=== PATIENT | female | born 1960 | race Caucasian/White ===

== ENCOUNTER 2021-05-10 04:15 | Outpatient (CLI) | payer MEDICAID, SELFPAY ==
[2021-05-10 11:11] LABS: ALT 66 U/L (14-59); AST 29 U/L (15-37); Albumin 3.7 g/dL (3.4-5.0); Alkaline Phosphatase 150 U/L (46-116); Anion Gap 8.1 mmol/L (3-11); BUN 19 mg/dL (7-18); Bilirubin, Total 0.6 mg/dL (0.2-1.0); CO2 28.9 mmol/L (21.0-32.0); CREATININE 0.8 mg/dL (0.55-1.02); Calcium 9.5 mg/dL (8.5-10.1); Chloride 98 mmol/L (98-107); Cholesterol 289 mg/dL (<200); Glucose 428 mg/dL (74-106); HDL Cholesterol 37 mg/dL (40-60); Potassium 4.7 mmol/L (3.5-5.1); Sodium 135 mmol/L (136-145); TSH 2.19 uIU/mL (0.36-3.74); Triglyceride 628 mg/dL (<150)
[2021-05-10 11:28] LABS: LDL CHOLESTEROL 139 mg/dL (<100)
== END 2021-05-10 04:16 | disposition home or self-care (01) ==
LOC: LBO 04:15
PROVIDERS: PCP Internal Medicine; Visit Provider Internal Medicine
DX: E78.00 Pure hypercholesterolemia, unspecified (principal); E66.01 Morbid (severe) obesity due to excess calories; R03.0 Elevated blood-pressure reading, without diagnosis of hypertension
CPT/HCPCS: 36415; 80053; 80061; 83721; 84443

== ENCOUNTER 2021-05-16 02:17 | Outpatient (CLI) | payer MEDICAID, SELFPAY ==
--- NOTE | 2021-05-16 15:00 | NS.NUTBLAN_ITS ---
Ellie was referred to Medical Nutrition Therapy for diabetes self management education. Newly diagnosed with DM2 with A1c: 14% , tri, Chol 289, LDL 139, HDL: 37 (05/10/21). PMH: morbid obesity, HTN, elevated triglycerides, metabolic syndrome. Ellie also has bilateral cataracts and is legally blind, cannot read any print. Has not picked up her glucometer yet and states she won't be able to use or read it. Son lives with her that can help with written material. Ellie states she has stopped drinking soda and eating junk foods. Diet recall indicates mostly well balanced meals including sandwiches, home cooked meals. High intake of milk as beverages during day. Reviewed verbally how to follow a lower carb diet to help reduce blood sugars. Also discussed benefits of using a continuous glucose monitor with alarms that can help alert her when she experiences hypo/hyper glycemia. Recommend script for Libre2 Continuous glucose monitor and sensor and continue on metformin 1000 mg BID. Recommend starting Januvia to target post prandial blood sugars. If unable to get fasting blood sugars <140 mg/dl, recommend starting basal insulin- Tresiba. Ellie has low health literacy and will benefit from referral to community connections to assist her in navigating the medical system with multiple co morbidities. Has been working with [facility] [employer]. Provided Ellie with my contact info as can place continuous glucose monitor on most weekdays. Will follow up by phone in 1 week.
== END 2021-05-16 02:18 | disposition home or self-care (01) ==
LOC: DS 02:18
PROVIDERS: PCP Internal Medicine; Visit Provider Dietitian, Registered
DX: E11.9 Type 2 diabetes mellitus without complications (principal); E66.01 Morbid (severe) obesity due to excess calories; I10 Essential (primary) hypertension; Z71.3 Dietary counseling and surveillance
CPT/HCPCS: 97802

== ENCOUNTER 2021-05-31 09:45 | Outpatient (CLI) | payer MEDICAID, SELFPAY ==
--- NOTE | 2021-05-31 09:45 | RT.EKG_ITS ---
APPROVED REPORT Exam: Resting ECG Reason for Exam: pre op Patient Location: O HR:93 bpm ECG Measurements Heart Rate 93 AXIS NE 155 P 51 QRSd 76 QRS 42 QT 347 T 24 QTc 432 Conclusion Sinus rhythm...normal P axis, V-rate 60- 99 Poor R wave progression
== END 2021-05-31 09:46 | disposition home or self-care (01) ==
LOC: DI.KIM 09:51
PROVIDERS: PCP Internal Medicine; Visit Provider Internal Medicine
DX: Z01.818 Encounter for other preprocedural examination (principal)
CPT/HCPCS: 93010

== ENCOUNTER 2021-06-09 02:50 | Outpatient (CLI) | payer MEDICAID, SELFPAY ==
[2021-06-09 11:03] LABS: Source Nasal/Nares
[2021-06-09 19:01] LABS: COVID-19 PCR Negative (Negative)
== END 2021-06-09 02:51 | disposition home or self-care (01) ==
LOC: LBO 02:50
PROVIDERS: PCP Internal Medicine; Visit Provider Ophthalmology
DX: Z20.822 Contact with and (suspected) exposure to COVID-19 (principal); Z01.818 Encounter for other preprocedural examination
CPT/HCPCS: 87635

== ENCOUNTER 2021-06-12 06:37 | Day surgery (SDC) | payer MEDICAID, SELFPAY ==
[2021-06-12 06:48] VITALS: BP 119/84; PULSE 96; RESP 16; TEMP 36.4; O2SAT 98
[2021-06-12] MEDS: Tropicam./Phenyleph. (1/2.5%) 5 ML BTL OS ×3 (06:58→07:11)
--- NOTE | 2021-06-12 07:16 | ANES.PREOP_ITS ---
General Info Date of Service Date Performed: 06/12/21 Height: 5 ft 6.5 in Weight: 118.4 kg Body Mass Index (BMI): 41.5 Surgical Procedure: Operation Date: 06/12/21 07:40 Proposed Procedures Side Surgeon p Cataract Extraction with IOL Implant Marc Rosado MD Meds Allergies and Home Medications Allergies Allergy/AdvReac Type Severity Reaction Status Date / Time No Known Allergies Allergy Verified 06/12/21 07:01 Home Medication Medication Instructions Recorded acetaminophen [Mapap Extra 1,000 mg PO PRN PRN 05/28/17 Strength] ibuprofen 400 mg PO PRN PRN 05/28/17 albuterol sulfate 90 mcg/actuation 2 puff INHALATION Q6H PRN #1 unit 05/03/21 aerosol inhaler metformin 500 mg tablet 500 mg PO BID #60 tab 05/10/21 alcohol swabs 1 pad TOPICAL DAILY #100 ea 05/17/21 amlodipine 2.5 mg tablet 2.5 mg PO DAILY #30 tab 05/17/21 blood sugar diagnostic #100 ea 05/17/21 blood-glucose meter #1 ea 05/17/21 lancets 33 gauge #100 ea 05/17/21 pen needle, diabetic 31 gauge x #100 05/17/21 1/4 insulin glargine 100 unit/mL (3 20 unit SUBCUT QPM #6 syrg 05/31/21 mL) subcutaneous pen tiotropium bromide 1.25 2 puff INHALATION QAM #1 units 05/31/21 mcg/actuation mist for inhalation olmesartan 20 1 tab PO DAILY #30 tab 06/02/21 mg-hydrochlorothiazide 12.5 mg tablet Current Visit Medications: Current Medications Generic Name Dose Route Start Last Admin Trade Name Freq PRN Reason Stop Dose Admin Acetaminophen 1,000 mg 06/12/21 06:00 Acetaminophen 500 Mg Tab PO Q4H PRN PRN Miscellaneous Medication 0 ml 06/12/21 06:00 Prednisolone 1%, Moxifloxacin 0.5%, Nepafenac 0.1% 5ml Btl OS DIRECTED [facility] Miscellaneous Medication 0 ml 06/12/21 06:00 06/12/21 07:11 Tropicam./Phenyleph. (1/2.5%) 5 Ml Btl OS 1 drp DIRECTED HILARIA Administration Tetracaine HCl 0 ml 06/12/21 06:00 Tetracaine 0.5% 4 Ml Btl OS DIRECTED [facility] Active Problems Active Problems: Problem Status Onset Code Obesity, morbid, BMI 40.0-49.9 E66.01 Cataracts, bilateral H26.9 Nicotine dependence ~1974 F17.200 Hypertriglyceridemia E78.1 Type 2 diabetes mellitus without complication E11.9 Essential hypertension I10 Metabolic syndrome E88.81 Nuclear sclerotic cataract of left eye H25.12 Posterior subcapsular age-related cataract of left eye H25.042 Medical History Medical History Elevated blood pressure reading without diagnosis of hypertension Surgical History Surgical History (Updated 06/12/21 @ 07:01 by Jacinda Messer) Hx of tooth extraction 1987; all teeth removed Hx of tubal ligation Hx of wisdom tooth extraction Tobacco Smoking/Tobacco Use Status: Current every day Tobacco Type: cigarettes Quit Status: not considering quitting Alcohol Alcohol Intake: former Substance Use Substance use: Occasionally Substance use type: marijuana Details: Patient reports no use today; 06/12/21 Vital Signs and Lab Results Vital Signs Most Recent Vital Signs in EMR: Most Recent Vital Signs Temp Pulse Resp BP Pulse Ox 36.4 C L 96 H 16 119/84 98 06/12/21 06:48 06/12/21 06:48 06/12/21 06:48 06/12/21 06:48 06/12/21 06:48 Lab Results Blood Type / Crossmatch: No Data to Display Complete Blood Count: No Data to Display Complete Metabolic Panel: No Data to Display Liver Function Panel: No Data to Display Coagulation Panel: No Data to Display Cardiac Panel: No Data to Display Arterial Blood Gas: No Data to Display Venous Blood Gas: No Data to Display Pancreas Panel: No Data to Display Thyroid Panel: No Data to Display Infectious Disease: Coronavirus (COVID-19)(PCR) Negative (Negative) 06/09/21 08:44 06/09/21 Coronavirus 2019 Source Nasal/Nares 06/09/21 08:44 06/09/21 Blood Cultures: No Data to Display Toxicology Panel: No Data to Display Anesthesia Assessment and Plan Anesthesia History Personal History: No History of Anesthesia Complications Family History: No Family History of Anesthesia Complications Exercise Tolerance Exercise Tolerance: Metabolic Equivalents>4 Pertinent Negatives Pertinent Negatives: No Symptoms of GERD, No Major Cardiovascular Symptoms or Complaints, No Major Pulmonary Symptoms or Complaints and No History of CVA/TIA Cardiac & Pulmonary Exam Cardiac Exam: Normal S1/S2 Heart Sounds Pulmonary Exam: Clear Bilateral Breath Sounds and Unable to Assess Airway Exam Known Difficult Airway: No Mallampati Class: 1 Mouth Opening: Normal (> 3cm) Thyromental Distance: Greater than 3 cm Neck Range of Motion: Full ROM Neck Circumference: Normal Teeth Condition: Normal Dentition, Removable Dentures/Plates Upper and Removable Dentures/Plates Lower ASA Classification ASA Score: ASA 3 Emergency Case?: No NPO Status NPO Status: NPO Clears >2 hours, Solids >8 hours Anesthesia Plan Resuscitation Status: Full Code Anesthesia Technique: MAC Anesthesia Airway Planned: Natural Airway Monitors Used: Standard Monitors
[2021-06-12 07:18] VITALS: BMI 41.5
[2021-06-12] MEDS: Trypan Blue 0.06% 0.5 ML SYR (07:44)
[2021-06-12] MEDS: Tetracaine 0.5% 4 ML BTL OS (07:46)
[2021-06-12] MEDS: Lidocaine 1% Pres-Free 5 ML VIAL (07:47)
[2021-06-12] MEDS: Balanced Salt Soln.-PLUS 500 ML BAG (07:49)
[2021-06-12] MEDS: Lidocaine 2% Jelly 6 ML SYR (07:50)
[2021-06-12] MEDS: Duovisc Viscoelastic System EACH 1 EACH (07:50)
[2021-06-12] MEDS: Povidone-Iodine Ophth 30 ML BTL (07:51)
--- NOTE | 2021-06-12 08:01 | W.ANESPOSTOP ---
Postoperative Evaluation Date, Time and Location Date Performed: 06/12/21 Time Performed: 08:01 Patient Location: Day Surgery Unit Vital Signs Most Recent Imported Vital Signs: Most Recent Vital Signs Temp Pulse Resp BP Pulse Ox 36.4 C L 96 H 16 119/84 98 06/12/21 06:48 06/12/21 06:48 06/12/21 06:48 06/12/21 06:48 06/12/21 06:48 Most Recent Manually Entered Vital Signs: Adult Blood Pressure: 113/87 Heart Rate: 87 Respirations: 12 Oxygen Saturation (%): 94 Temperature (C): 35.9 C Pain Score (0-10 Scale): 0 Pain Score Most Recent Pain Score: Most Recent Pain Score Pain Level 2 06/12/21 06:48 Assessment Mental Status: Awake (Alert & Oriented to Patient Baseline) Airway and Respiratory Function: Patent airway with normal (patient baseline) respiratory exam Cardiovascular Function: Hemodynamically Stable Hydration Status: Adequately Hydrated Nausea & Vomiting: No Nausea or Vomiting Pain: Pt. Denies Any Pain Peripheral Nerve Block: Patient did not receive a nerve block
[2021-06-12 08:02] VITALS: BP 113/87; PULSE 87; RESP 12; TEMPC 35.9; O2SAT 94
--- NOTE | 2021-06-12 08:04 | W.PM.DSUDISC ---
Discharge Plan Disposition Patient Disposition: HOME Condition: Good Discharge Details Attending Provider: Marc Rosado Primary Care Provider: Trena Lynne Home Meds and New Rx's Prescriptions: No Action albuterol sulfate 90 mcg/actuation HFA aerosol inhaler 2 puff inhalation Q6H PRN (Reason: shortness of breath or wheezing) Qty: 1 RF: 2 metformin 500 mg tablet 500 mg PO BID Qty: 60 RF: 1 Spiriva Respimat 1.25 mcg/actuation mist 2 puff inhalation QAM Qty: 1 RF: 1 Lantus Solostar U-100 Insulin 100 unit/mL (3 mL) insulin pen 20 unit subcut QPM Qty: 6 RF: 3 amlodipine 2.5 mg tablet 2.5 mg PO DAILY Qty: 30 RF: 1 (DME) lancets [OneTouch Delica Lancets] 33 gauge misc See Rx Instructions .ROUTE .MEDSUPPLY Qty: 100 RF: 0 (DME) blood-glucose meter [OneTouch Ultra2 Meter] Misc See Rx Instructions .ROUTE .MEDSUPPLY Qty: 1 RF: 0 alcohol swabs [Alcohol Pads] Pads, Medicated 1 pad topical DAILY Qty: 100 RF: 6 (DME) OneTouch Ultra Test Strip See Rx Instructions .ROUTE .MEDSUPPLY Qty: 100 RF: 5 (DME) pen needle, diabetic [Comfort EZ Pen [place]] 31 gauge x 1/4 needle See Rx Instructions .ROUTE .MEDSUPPLY Qty: 100 RF: 6 olmesartan-hydrochlorothiazide 20-12.5 mg tablet 1 tab PO DAILY Qty: 30 RF: 0 ibuprofen 200 MG capsule 400 mg PO PRN PRNRF: 0 acetaminophen [Mapap Extra Strength] 500 MG tablet 1,000 mg PO PRN PRNRF: 0 Discharge Instructions Stand Alone Forms: Post-op Topical Cataract, Press Capriceey (DSU) Discharge Orders Discharge Orders: Discharge Order (Routine); Ordered 06/12/21 Ordered By: Marc Rosado DS: Diagnosis Discharge Diagnosis (1) Nuclear sclerotic cataract of left eye: Status: Resolved (2) Posterior subcapsular age-related cataract of left eye: Status: Resolved
--- NOTE | 2021-06-12 08:06 | W.PM.OP ---
Date of service: 06/12/21 Time of Service: 08:06 Operative Note Operative Note DATE OF PROCEDURE: 06/12/21 PRE-OP DIAGNOSIS: Dense nuclear/posterior subcapsular cataract, left eye Poor red reflex, left eye POST-OP DIAGNOSIS: same PROCEDURE: Cataract extraction using phacoemulsification with intraocular lens implant, left eye, using capsular staining with Vision Blue SURGEON: Marc Rosado ANESTHESIA TYPE: Local By Surgeon and MAC Refer to Anesthesia Record COMPLICATIONS: None Patient was transported to: same day Patient's condition: stable Implants: Karsten [employer] Karsten / [employer] Tecnis [id number] Indications: Progressive decreased vision due to cataract, left eye, with poor red reflex Procedure Description: CATARACT SURGERY OPERATIVE REPORT PREOPERATIVE DIAGNOSIS: 1. Dense nuclear/posterior subcapsular cataract, left eye 2. Poor red reflex secondary to #1 POSTOPERATIVE DIAGNOSIS: Same OPERATION: 1. Cataract extraction using phacoemulsification with posterior chamber intraocular lens implant, left eye. 2. Capsular staining with Vision Blue IOL: IOL Sueding Machine Operator/Model: Karsten & Karsten / KIA Tecnis [id number] IOL Power: + 23.5 diopters IOL Serial Number: [id number] Optic Diameter: 6.0 mm Haptic/Overall Diameter: 13.0 mm PHACO INFO: Javier [employer]Tec-[employer] Vision System with OZil and Active Fluidics Cumulative Dispersed Energy (CDE): 19.28 seconds SURGEON: Marc Rosado MD, CATHERINE ANESTHESIA: Monitored A [facility] (MAC), with local sub-tenon's anesthetic infiltration COMPLICATIONS: None SPECIMENS: None INDICATIONS FOR PROCEDURE: The patient is an 61-year-old lady with history of progressive decreased vision in both eyes secondary to cataract. She has a mature white cataract in the right eye with hand motions vision. She has a dense nuclear and posterior subcapsular cataract in the left eye. Of cataract surgery was offered to the patient and she wished to proceed. Cataract surgery is undertaken on the less affected eye first. PROCEDURE: The correct surgical eye was identified and marked as the left eye and the pupil was dilated in the preoperative area using mydriatics and cycloplegics. The dilated pupil size was 7.0 mm. Oral sedation was administered in the form of an Imprimis MKO Melt (midazolam 3mg/ketamine 25mg/ondansetron 2mg). The patient was brought to the operating room where cardiopulmonary monitoring was instituted and surgical time-out was performed, confirming the correct operative eye and IOL power. Topical anesthesia was administered and ophthalmic povidone-iodine 5% was instilled into the conjunctival fornices. Lidocaine gel was applied to the cornea and the adarsh-ocular area was prepped with Betadine 10% solution and draped in the usual sterile fashion for intraocular surgery, including an aperture drape. A Tegaderm transparent film dressing was cut in half and used to cover the lashes and lid margins. Care was taken to sequester the lashes and lid margins under the Tegaderm dressing. A lid speculum was placed between the lids of the operative eye and the Matthew-Jose operating microscope was maneuvered into position. Tor scissors were then used to make a conjunctival buttonhole approximately 6mm posterior to the limbus in the inferonasal quadrant. Blunt dissection was carried out to expose bare sclera, and a blunt-tipped sub-tenon?s anesthesia cannula was introduced and passed posteriorly along the globe where non-preserved plain lidocaine was injected into posterior sub-Tenon?s space. A sideport knife was used to make a paracentesis port superiorly/superiortemporally. Intraocular phenylephrine/lidocaine was injected int the anterior chamber.. Air was then injected into the anterior chamber, followed by Vision Blue, which was painted over the anterior capsule and then irrigated out using BSS. The anterior chamber was filled with viscoelastic. A 2.4mm keratome knife was used to create a half-thickness groove at the limbus and then to construct a three-plane near-clear corneal tunnel extending 2.0mm into clear cornea at the 3:00 position. A flap was raised on the anterior capsule and capsulorhexis forceps were used to complete a continuous curvilinear capsulorhexis of 5.0 mm. Balanced salt solution was then used to perform cortical cleaving hydrodissection and nuclear hydrodelineation until the lens could be freely rotated within the capsular bag. The lens nucleus was then disassembled and removed within the capsular bag and iris plane using phacoemulsification. Residual cortical material was removed using the 45-degree angled silicone I/A tip with 0.3mm port. The posterior capsule was carefully polished to remove as much residual lens epithelial cells as safely possible. The capsular bag was then inflated and the anterior chamber deepened with viscoelastic. The lens implant described above was inserted into the capsular bag using the KIA [place] Injector. A Kuglen hook was used to dial the IOL into position. Residual viscoelastic was then removed first from posterior to the IOL, then from the anterior chamber using the I/A handpiece. The lens implant was noted to center nicely within the capsular bag. The incisions were stromally hydrated, and the anterior chamber was reformed using BSS. Then 0.5cc of moxifloxacin 1.0mg/ml were injected into the capsular bag and anterior chamber. The incisions were checked with a Weck spear and found to be secure. Several drops of ophthalmic povidone-iodine 5% were then applied to the eye followed by two drops of Imprimis combination prednisolone/moxifloxacin/nepafenac solution. The drapes were removed and a clear plastic protective eye shield was placed over the eye. The patient was then returned to Same Day Surgery in stable condition.
[2021-06-12 08:30] VITALS: BP 101/79; PULSE 89; RESP 16; TEMP 36.2; O2SAT 93
== END 2021-06-12 08:47 | disposition home or self-care (01) ==
PROVIDERS: PCP Internal Medicine; Visit Provider Ophthalmology
PROC: (CPT 66984; principal; 2021-06-12 07:30)
DX: H25.042 Posterior subcapsular polar age-related cataract, left eye (principal); E11.9 Type 2 diabetes mellitus without complications
CPT/HCPCS: 66984; V2632

== ENCOUNTER 2021-06-23 01:49 | Outpatient (CLI) | payer MEDICAID, SELFPAY ==
[2021-06-23 10:19] LABS: Source Nasal/Nares
[2021-06-23 12:57] LABS: COVID-19 PCR Negative (Negative)
== END 2021-06-23 01:50 | disposition home or self-care (01) ==
LOC: LBO 01:49
PROVIDERS: PCP Internal Medicine; Visit Provider Ophthalmology
DX: Z20.822 Contact with and (suspected) exposure to COVID-19 (principal); Z01.818 Encounter for other preprocedural examination
CPT/HCPCS: 87635

== ENCOUNTER 2021-06-26 06:54 | Day surgery (SDC) | payer MEDICAID, SELFPAY ==
--- NOTE | 2021-05-22 10:10 | W.DIABETESNO ---
Date of service: 05/22/21 Time of Service: 10:10 Diabetes Note NOTE: Spoke to Ellie on phone today to follow up on visit last week. Ellie is using a large print glucometer and reports fasting today was 272mg/dl. She is taking 10 units lantus at night. She has been instructed to increase lantus by 2 units every 2 days until fasting sugars < 150 mg/dl. She did not want to discuss diet and said she didn't need any assistance with controlling her blood sugars. Sugars are slowing improving, last weeks blood sugars > 350 mg/dl in AM. Will follow up in 1 weeks. Time Spent in Nutritional Counseling and Treatment: 10
--- NOTE | 2021-05-29 09:50 | W.DIABETESNO ---
Date of service: 05/29/21 Time of Service: 09:50 Diabetes Note NOTE: Spoke to Ellie on phone. She reports fasting blood sugars < 150 mg/dl. Did not want any additional dietary information at this time. No follow up planed at this time. Time Spent in Nutritional Counseling and Treatment: 5
--- NOTE | 2021-06-26 07:05 | W.ANESPRE ---
General Info Date of Service Date Performed: 06/26/21 Height: 5 ft 6.5 in Weight: 118.4 kg Body Mass Index (BMI): 41.5 Surgical Procedure: Operation Date: 06/26/21 08:40 Proposed Procedures Side Surgeon p Cataract Extraction with IOL Implant Right Marc Rosado MD Meds Allergies and Home Medications Allergies Allergy/AdvReac Type Severity Reaction Status Date / Time No Known Allergies Allergy Verified 06/22/21 12:07 Home Medication Medication Instructions Recorded acetaminophen [Mapap Extra 1,000 mg PO PRN PRN 05/28/17 Strength] ibuprofen 400 mg PO PRN PRN 05/28/17 albuterol sulfate 90 mcg/actuation 2 puff INHALATION Q6H PRN #1 unit 05/03/21 aerosol inhaler metformin 500 mg tablet 500 mg PO BID #60 tab 05/10/21 alcohol swabs 1 pad TOPICAL DAILY #100 ea 05/17/21 amlodipine 2.5 mg tablet 2.5 mg PO DAILY #30 tab 05/17/21 blood sugar diagnostic #100 ea 05/17/21 blood-glucose meter #1 ea 05/17/21 lancets 33 gauge #100 ea 05/17/21 pen needle, diabetic 31 gauge x #100 ea 05/17/21 1/4 insulin glargine 100 unit/mL (3 20 unit SUBCUT QPM #6 syrg 05/31/21 mL) subcutaneous pen tiotropium bromide 1.25 2 puff INHALATION QAM #1 units 05/31/21 mcg/actuation mist for inhalation olmesartan 20 1 tab PO DAILY #30 tab 06/02/21 mg-hydrochlorothiazide 12.5 mg tablet Current Visit Medications: Current Medications Generic Name Dose Route Start Last Admin Trade Name Freq PRN Reason Stop Dose Admin Acetaminophen 1,000 mg 06/26/21 06:00 Acetaminophen 500 Mg Tab PO Q4H PRN PRN Miscellaneous Medication 0 ml 06/26/21 06:00 Prednisolone 1%, Moxifloxacin 0.5%, Nepafenac 0.1% 5ml Btl OD DIRECTED [facility] Miscellaneous Medication 0 ml 06/26/21 06:00 Tropicam./Phenyleph. (1/2.5%) 5 Ml Btl OD DIRECTED [facility] Tetracaine HCl 0 ml 06/26/21 06:00 Tetracaine 0.5% 4 Ml Btl OD DIRECTED [facility] Active Problems Active Problems: Problem Status Onset Code Cortical cataract of right eye H26.9 Nuclear sclerotic cataract of right eye H25.11 Obesity, morbid, BMI 40.0-49.9 E66.01 Cataracts, bilateral H26.9 Nicotine dependence ~1974 F17.200 Hypertriglyceridemia E78.1 Type 2 diabetes mellitus without complication E11.9 Essential hypertension I10 Metabolic syndrome E88.81 Nuclear sclerotic cataract of left eye H25.12 Posterior subcapsular age-related cataract of left eye H25.042 Medical History Medical History Elevated blood pressure reading without diagnosis of hypertension Surgical History Surgical History Hx of tooth extraction 1987; all teeth removed Hx of tubal ligation Hx of wisdom tooth extraction Tobacco Smoking/Tobacco Use Status: Current every day Tobacco Type: cigarettes Quit Status: not considering quitting Alcohol Alcohol Intake: former Substance Use Substance use: Occasionally Substance use type: marijuana Details: Patient reports no use today; 06/12/21 Vital Signs and Lab Results Lab Results Blood Type / Crossmatch: No Data to Display Complete Blood Count: No Data to Display Complete Metabolic Panel: No Data to Display Liver Function Panel: No Data to Display Coagulation Panel: No Data to Display Cardiac Panel: No Data to Display Arterial Blood Gas: No Data to Display Venous Blood Gas: No Data to Display Pancreas Panel: No Data to Display Thyroid Panel: No Data to Display Infectious Disease: Coronavirus (COVID-19)(PCR) Negative (Negative) 06/23/21 08:43 06/23/21 Coronavirus 2019 Source Nasal/Nares 06/23/21 08:43 06/23/21 Blood Cultures: No Data to Display Toxicology Panel: No Data to Display Imaging and Studies Imaging and Studies EKG Summary: Conclusion Sinus rhythm...normal P axis, V-rate 60- 99 Poor R wave progression Anesthesia Assessment and Plan Anesthesia History Personal History: No History of Anesthesia Complications Family History: No Family History of Anesthesia Complications Exercise Tolerance Exercise Tolerance: Metabolic Equivalents>4 Pertinent Negatives Pertinent Negatives: No Symptoms of GERD Cardiac & Pulmonary Exam Cardiac Exam: Normal S1/S2 Heart Sounds Pulmonary Exam: Clear Bilateral Breath Sounds Airway Exam Known Difficult Airway: No Mallampati Class: 1 Mouth Opening: Normal (> 3cm) Thyromental Distance: Greater than 3 cm Neck Range of Motion: Full ROM Neck Circumference: Normal Teeth Condition: Normal Dentition, Removable Dentures/Plates Upper and Removable Dentures/Plates Lower ASA Classification ASA Score: ASA 2 Emergency Case?: No NPO Status NPO Status: NPO Clears >2 hours, Solids >8 hours Anesthesia Plan Resuscitation Status: Full Code Anesthesia Technique: MAC Anesthesia Airway Planned: Natural Airway Monitors Used: Standard Monitors Preoperative Comments:: 61 yo female patient here for repeat cataract. Per patient anxious as Dr. Rosado told her this will be a longer procedure than the first. BMI 41.5, NKA, no problems with anesthesia in the past. Stated previous anesthetic plan worked fine and would like to repeat. Discussed risks and benefits. Patient consented.
[2021-06-26] MEDS: Tropicam./Phenyleph. (1/2.5%) 5 ML BTL OD ×3 (07:28→07:39)
[2021-06-26 07:34] VITALS: BP 132/83; PULSE 86; RESP 16; TEMP 36.6; O2SAT 96
[2021-06-26 07:36] VITALS: BMI 41.5
[2021-06-26] MEDS: Tetracaine 0.5% 4 ML BTL OD (08:13)
[2021-06-26] MEDS: Lidocaine 2% Jelly 6 ML SYR (08:14)
[2021-06-26] MEDS: Balanced Salt Soln.-PLUS 500 ML BAG ×2 (08:20→09:35)
[2021-06-26] MEDS: Povidone-Iodine Ophth 30 ML BTL ×2 (08:21→09:47)
[2021-06-26] MEDS: Lidocaine 1% Pres-Free 5 ML VIAL (08:21)
[2021-06-26] MEDS: Duovisc Viscoelastic System EACH 1 EACH ×3 (08:21→09:37)
[2021-06-26] MEDS: Trypan Blue 0.06% 0.5 ML SYR (08:25)
--- NOTE | 2021-06-26 08:43 | W.ANESPOSTOP ---
Postoperative Evaluation Date, Time and Location Date Performed: 06/26/21 Time Performed: 10: Patient Location: Day Surgery Unit Vital Signs Most Recent Imported Vital Signs: Temp Pulse Resp BP Pulse Ox 36.7 C 83 16 115/79 95 06/26/21 10:21 06/26/21 10:21 06/26/21 10:21 06/26/21 10:06/26/21 10:21 Pain Score Most Recent Pain Score: Most Recent Pain Score Pain Level 0 06/26/21 07:34 Assessment Mental Status: Awake (Alert & Oriented to Patient Baseline) Airway and Respiratory Function: Patent airway with normal (patient baseline) respiratory exam Cardiovascular Function: Hemodynamically Stable Hydration Status: Adequately Hydrated Nausea & Vomiting: No Nausea or Vomiting Pain: Pt. Denies Any Pain Peripheral Nerve Block: Other (Local by Dr. Rosado)
[2021-06-26] MEDS: Tetracaine 0.5% 4 ML BTL (09:53)
[2021-06-26 10:21] VITALS: BP 115/79; PULSE 83; RESP 16; TEMP 36.7; O2SAT 95
--- NOTE | 2021-06-26 10:24 | PDOC.DSDIS_ITS ---
Discharge Plan Disposition Patient Disposition: HOME Condition: Good Discharge Details Attending Provider: Marc Rosado Primary Care Provider: Trena Lynne Home Meds and New Rx's Prescriptions: No Action albuterol sulfate 90 mcg/actuation HFA aerosol inhaler 2 puff inhalation Q6H PRN (Reason: shortness of breath or wheezing) Qty: 1 RF: 2 metformin 500 mg tablet 500 mg PO BID Qty: 60 RF: 1 Spiriva Respimat 1.25 mcg/actuation mist 2 puff inhalation QAM Qty: 1 RF: 1 Lantus Solostar U-100 Insulin 100 unit/mL (3 mL) insulin pen 20 unit subcut QPM Qty: 6 RF: 3 amlodipine 2.5 mg tablet 2.5 mg PO DAILY Qty: 30 RF: 1 (DME) lancets [OneTouch Delica Lancets] 33 gauge misc See Rx Instructions .ROUTE .MEDSUPPLY Qty: 100 RF: 0 (DME) blood-glucose meter [OneTouch Ultra2 Meter] Misc See Rx Instructions .ROUTE .MEDSUPPLY Qty: 1 RF: 0 alcohol swabs [Alcohol Pads] Pads, Medicated 1 pad topical DAILY Qty: 100 RF: 6 (DME) OneTouch Ultra Test Strip See Rx Instructions .ROUTE .MEDSUPPLY Qty: 100 RF: 5 (DME) pen needle, diabetic [Comfort EZ Pen [place]] 31 gauge x 1/4 needle See Rx Instructions .ROUTE .MEDSUPPLY Qty: 100 RF: 6 olmesartan-hydrochlorothiazide 20-12.5 mg tablet 1 tab PO DAILY Qty: 30 RF: 0 ibuprofen 200 MG capsule 400 mg PO PRN PRNRF: 0 acetaminophen [Mapap Extra Strength] 500 MG tablet 1,000 mg PO PRN PRNRF: 0 Discharge Instructions Stand Alone Forms: Post-op Topical Cataract, Press Ganey (DSU) Discharge Orders Discharge Orders: Discharge Order (Routine); Ordered 06/26/21 Ordered By: Marc Rosado DS: Diagnosis Discharge Diagnosis (1) Cortical cataract of right eye: Status: Resolved (2) Nuclear sclerotic cataract of right eye: Status: Resolved
--- NOTE | 2021-06-26 10:26 | W.PM.OP ---
Date of service: 06/26/21 Time of Service: 10:26 Operative Note Operative Note DATE OF PROCEDURE: 06/26/21 PRE-OP DIAGNOSIS: Mature white cataract with dense nuclear cataract, right eye Absent red reflex secondary to cataract POST-OP DIAGNOSIS: other (Mature white cataract with dense nucleus, inferior zonular dialysis) PROCEDURE: Cataract extraction using phacoemulsification with intraocular lens implantation, right eye, using capsular staining with Vision Blue Insertion of capsular tension ring SURGEON: Marc Rosado ANESTHESIA TYPE: Local By Surgeon and MAC Refer to Anesthesia Record PATHOLOGY: none sent COMPLICATIONS: Other (Inferior zonular dialysis noted intraoperatively, 3-4 clock hours) Patient was transported to: same day Patient's condition: stable Implants: [employer] / [employer]nis [id number] Indications: Progressive visual loss due to cataract, right eye Procedure Description: CATARACT SURGERY OPERATIVE REPORT PREOPERATIVE DIAGNOSIS: 1. Mature white cataract with dense endonucleus 2. Poor red reflex secondary to #1 POSTOPERATIVE DIAGNOSIS: Same OPERATION: 1. Cataract extraction using phacoemulsification with posterior chamber intraocular lens implant, right eye. 2. Capsular staining with Vision Blue 3. Insertion of capsular tension ring IOL: IOL Lith[employer]ing Machinist/Model: [employer] Karsten / KIA AR40e IOL Power: + 20.50 diopters IOL Serial Number: [id number] Optic Diameter: 6.0mm Haptic/Overall Diameter: 13.0mm PHACO INFO: Javier [employer] Vision System with OZil and Active [employer]uidics Cumulative Dispersed Energy (CDE): 68.13 seconds SURGEON: Marc Rosado MD, CATHERINE ANESTHESIA: Monitored Anesthesia Care (MAC), with local sub-tenon's anesthetic infiltration COMPLICATIONS: None SPECIMENS: None INDICATIONS FOR PROCEDURE: The patient is a 61-year-old lady who recently presented with diminished visual acuity in both eyes. She was noted to have a mature white cataract in the right eye with no view of the posterior pole. A dense nuclear and posterior subcapsular cataract was present in the left eye. She has already undergone cataract surgery in the left eye and is doing well postoperatively. She now presents for cataract surgery in the right eye. PROCEDURE: The correct surgical eye was identified and marked as the right eye and the pupil was dilated in the preoperative area using mydriatics and cycloplegics. The dilated pupil size was 8.0 mm. Oral sedation was administered in the form of an Imprimis MKO Melt (midazolam 3mg/ketamine 25mg/ondansetron 2mg). The patient was brought to the operating room where cardiopulmonary monitoring was instituted and surgical time-out was performed, confirming the correct operative eye and IOL power. Topical anesthesia was administered and ophthalmic povidone-iodine 5% was instilled into the conjunctival fornices. Lidocaine gel was applied to the cornea and the adarsh-ocular area was prepped with Betadine 10% solution and draped in the usual sterile fashion for intraocular surgery, including an aperture drape. A Tegaderm transparent film dressing was cut in half and used to cover the lashes and lid margins. Care was taken to sequester the lashes and lid margins under the Tegaderm dressing. A lid speculum was placed between the lids of the operative eye and the Matthew-Jose operating microscope was maneuvered into position. Tor scissors were then used to make a conjunctival buttonhole approximately 6mm posterior to the limbus in the inferonasal quadrant. Blunt dissection was carried out to expose bare sclera, and a blunt-tipped sub-tenon?s anesthesia cannula was introduced and passed posteriorly along the globe where non-preserved plain lidocaine was injected into posterior sub-Tenon?s space. A sideport knife was used to make a paracentesis port inferotemporally and superiorly. Intraocular phenylephrine/lidocaine was injected into the anterior chamber. Air was injected into the anterior chamber, followed by Vision Blue, which was painted over the anterior capsule and then irrigated out with BSS. While painting the trypan blue over the anterior capsule, I was noted to be distended and taut. The anterior chamber was filled with viscoelastic. A 25-gauge needle on a TB syringe was then introduced through the superior paracentesis. Entering the central anterior capsule with bevel up, liquefied cortex was removed from under the capsule. A significant amount of liquefied cortical material also escaped into the anterior chamber. Additional Provisc was then introduced to clear the cortex and flatten the anterior capsule. Micro capsulorhexis forceps were then used to quickly create a small approximately 2.5 mm central round capsulorhexis. Viscoelastic had to be injected several times to clear liquefied cortex. The I/A handpiece was then used to remove liquefied cortical material from within the capsular bag. Once the bag was significantly decompressed, the anterior chamber was filled with Viscoat. Microscissors were then used to make a florentin in the anterior capsule and micro capsulorhexis forceps were then used to create a 5 mm continuous curvilinear capsulorhexis through the superior side-port incision.. A significant mount of capsular wrinkling and highly mobile capsule/lens complex was noted. A 2.4mm keratome knife was used to create a half-thickness groove at the limbus and then to construct a three-plane near-clear corneal tunnel extending 2.0mm into clear cornea superiortemporally. Hydrodissection was unnecessary as the remaining cataract was freely mobile within the capsular bag. A single deep linear groove was sculpted in the central nucleus. The anterior chamber was noted to be quite deep. The nucleus was then attempted to be cracked into 2 halves but was unsuccessful. The groove was lengthened and deepened and again a crack was attempted, but was unsuccessful. The capsule was noted to be very floppy with loose zonules. Viscoelastic was then used to fill the capsular bag and anterior chamber and nuclear splitters were used in attempt to crack the nucleus into 2 heminuclei. There was a dense fibrotic posterior plate which could not be cracked. A second groove was then sculpted and attempts were made to divide the nucleus into quadrants using gentle cracking maneuvers with a Diane and Kuglen hook. . At this point the capsule was noted to be too mobile and inferior zonular dialysis was apparent approximately 4:00 to the 7 o'clock position. The capsular bag was inflated with cohesive viscoelastic and a Shin capsular tension ring was then inserted into the capsular bag using the capsular tension ring injector. Viscoat was injected behind the nucleus and a backtracking maneuver was used, and was able to split the lens into 2 heminuclei. Slow motion phaco was used to engage each heminuclei and bring it into the iris plane for phacoemulsification. The nucleus was very dense and fibrotic. Once all nuclear fragments were removed, the phaco handpiece was left in the eye and the capsular bag inflated using Provisc through the side-port to avoid anterior chamber collapse. Was felt the capsular bag was too unstable to place an in the bag single piece or even three-piece IOL, so sulcus fixation was planned. A 3 piece [employer] Kar[employer] AR40e was inserted completely within the anterior chamber. A Kuglen hook was then used to place the haptics in the sulcus at the 3 and 9:00 positions. An attempt was made to capture the object through the anterior capsulorrhexis, but the anterior capsulorrhexis was shifted superiorly at this point and this was not possible. Elastic was removed from the anterior chamber, and with the I/A handpiece still in the eye, Miostat was injected into the anterior chamber. The pupil was noted to come down around although remained mid dilated. The wounds were hydrated and an additional anterior chamber was used to remove as much viscoelastic as possible. The IOL remained centered. The incisions were checked with a Weck spear and found to be secure. At the conclusion of the procedure, 0.5 cc of moxifloxacin 1 mg/mL was injected into the anterior chamber. The pupil was round with no peaking. Several drops of ophthalmic povidone-iodine 5% were then applied to the eye followed by two drops of Imprimis combination prednisolone/moxifloxacin/nepafenac solution. The drapes were removed and a clear plastic protective eye shield was placed over the eye. The patient was then returned to [facility] in stable condition.
[2021-06-26 10:52] VITALS: BP 112/62; PULSE 76; RESP 16; TEMP 36.3; O2SAT 96
== END 2021-06-26 10:55 | disposition home or self-care (01) ==
PROVIDERS: PCP Internal Medicine; Visit Provider Ophthalmology
PROC: (CPT 66984; principal; 2021-06-26 08:30)
DX: H25.11 Age-related nuclear cataract, right eye (principal); I10 Essential (primary) hypertension; E11.9 Type 2 diabetes mellitus without complications; Z79.4 Long term (current) use of insulin
CPT/HCPCS: 66984; V2632